=== PATIENT | male | born 1960 | race Caucasian/White ===

== ENCOUNTER 2023-01-16 13:50 | Emergency (ER) | payer OTHER ==
[~2023-01-16] VITALS: Ht 180.3 cm; Wt 83.9 kg
[2023-01-16] MEDS ORDERED: METOPROLOL SUCC25 MG PO (18:39)
--- NOTE | 2023-01-16 19:35 | EKG ---
[facility] [address] [facility] [place] [address] Signed Normal sinus rhythm Possible Left atrial enlargement Incomplete right bundle branch block Left ventricular hypertrophy ( R in aVL , Lane product ) Prolonged QT Abnormal ECG No previous ECGs available Confirmed by Geovanna Yoo MD () on 01/16/2023 7:34:55 PM Electronically Signed By: GEOVANNA YOO MD 01/16/231934 PATIENT NAME: LESLIE CAMACHO Electrocardiogram DATE OF : 58 PHYSICIAN: GEOVANNA YOO MD REPORT #: [id number] REPORT IS CONFIDENTIAL AND NOT TO BE RELEASED WITHOUT AUTHORIZATION
== END 2023-01-16 19:03 | disposition home or self-care (01) ==
LOC: ED 13:50
DX: I16.0 Hypertensive urgency (principal); F15.10 Other stimulant abuse, uncomplicated; E11.40 Type 2 diabetes mellitus with diabetic neuropathy, unspecified; I10 Essential (primary) hypertension; Z88.0 Allergy status to penicillin
CPT/HCPCS: 36415; 70450; 70496; 70498; 71045; 80053; 83690; 84484; 85025; 85610; 85730; 93005; 93010; 96361; 99285-25; J2060; J2405; J7030; Q9967

== ENCOUNTER 2023-09-21 14:09 | Emergency (ER) | payer OTHER ==
[~2023-09-21] VITALS: Ht 180.3 cm; Wt 96.3 kg
[~2023-09-21 14:09] MED LIST: METOPROLOL SUCC25 MG PO
[2023-09-21] MEDS ORDERED: BACTRIM DS TAB1 EACH PO (15:11)
[2023-09-21 15:34] VITALS: BP 196/113
== END 2023-09-21 15:35 | disposition home or self-care (01) ==
LOC: ED 14:09
DX: L02.512 Cutaneous abscess of left hand (principal); T24.332A Burn of third degree of left lower leg, initial encounter; X17.XXXA Contact with hot engines, machinery and tools, initial encounter; I10 Essential (primary) hypertension; Z88.0 Allergy status to penicillin
CPT/HCPCS: 99283; A9270

== ENCOUNTER 2023-12-24 08:03 | Emergency (ER) | payer OTHER ==
[~2023-12-24] VITALS: Ht 180.3 cm; Wt 93.7 kg
[~2023-12-24 08:03] MED LIST changes: +BACTRIM DS TAB1 EACH PO
[2023-12-24] MEDS ORDERED: ACETAMINOPHEN 500 MG TAB PO ONE (08:30)
[2023-12-24 09:02] LABS: INFLUENZA B NAA NEGATIVE (NEGATIVE); RESPIRATORY SYNCYTIAL VIR NAA NEGATIVE (NEGATIVE)
[2023-12-24 09:18] VITALS: BP 156/94
== END 2023-12-24 09:18 | disposition home or self-care (01) ==
LOC: ED 08:03
PROVIDERS: Emergency Medicine
DX: J10.1 Influenza due to other identified influenza virus with other respiratory manifestations (principal); Z88.0 Allergy status to penicillin
CPT/HCPCS: 71045; 87502; A9270; U0002

== ENCOUNTER 2024-10-10 14:53 | Emergency (ER) | payer MEDICARE, OTHER ==
[~2024-10-10] VITALS: Ht 180.3 cm; Wt 90.4 kg
[2024-10-10] MEDS ORDERED: INHALER, ASSIST DEVICES 1 EACH SPACER MISC ONE (16:30)
[2024-10-10] MEDS ORDERED: ACETAMINOPHEN 500 MG TAB PO ONE (16:30)
[2024-10-10] MEDS ORDERED: ALBUTEROL SULFATE 8 GM HOME.PACK INH ONE (16:30)
[2024-10-10] MEDS ORDERED: IBUPROFEN 600 MG TAB PO ONE (16:30)
[2024-10-10 16:50] VITALS: BP 170/112
== END 2024-10-10 16:50 | disposition home or self-care (01) ==
LOC: ED 14:53
DX: J20.9 Acute bronchitis, unspecified (principal); F17.200 Nicotine dependence, unspecified, uncomplicated; Z88.0 Allergy status to penicillin
CPT/HCPCS: 99283; A9270

== ENCOUNTER 2024-12-02 14:08 | Emergency (ER) | payer MEDICARE, OTHER ==
[~2024-12-02] VITALS: Ht 180.3 cm; Wt 69.9 kg
[2024-12-02 14:55] LABS: CORONAVIRUS COVID-19 AG NEGATIVE (NEGATIVE); INFLUENZA A AG NEGATIVE (NEGATIVE); INFLUENZA B AG NEGATIVE (NEGATIVE)
[2024-12-02] MEDS ORDERED: ALBUTEROL/IPRATROPIUM 3 ML NEB INH ONE (15:00)
[2024-12-02 15:32] LABS: BASOPHILS 0.7 % (0-2); EOSINOPHILS 2.3 % (0-6); HEMATOCRIT 40.5 % (35.0-50.0); HEMOGLOBIN 14.1 g/dL (12.0-18.0); LYMPHOCYTES 13.4 % (24-44); MCH 31.2 (27-36); MCHC 34.9 g/dl (30-36); MCV 89.4 fl (81-99); MONOCYTES 9.6 % (0-12); PLATELET COUNT 220 K/uL (140-440); RBC 4.53 M/ul (4.3-5.7); RDW 13.9 (10.5-15.0)
[2024-12-02 15:56] LABS: ALBUMIN 3.5 g/dL (3.4-5.0); ALBUMIN/GLOBULIN RATIO 1.09 (1.1-2.4); ANION GAP 16.3 (7-21); BILIRUBIN, TOTAL 0.7 ng/dL (0.2-1.0); BUN/CREATININE RATIO 11.53 (6.0-28.6); CALCIUM 8.4 mg/dL (8.5-10.1); CREATININE, SERUM 1.04 mg/dL (0.70-1.30); POTASSIUM 4.3 mmol/L (3.5-5.1); PROTEIN, TOTAL 6.7 g/dL (6.4-8.2)
[2024-12-02] MEDS ORDERED: HEParin SOD (PORCINE) 5,000 UNIT/ML VIAL IV ONE ×2 (16:45→18:00)
[2024-12-02] MEDS ORDERED: CEFUROXIME SODIUM IV ONE (16:45)
[2024-12-02] MEDS ORDERED: ASPIRIN 325 MG TAB PO ONE (16:45)
[2024-12-02] MEDS ORDERED: HEPARIN SOD,PORK IN 0.45% NACL 500 ML IV SCH ×2 (16:45→18:00)
[2024-12-02] MEDS ORDERED: AZITHROMYCIN 250 MG TAB PO ONE (16:45)
[2024-12-02] MEDS ORDERED: DEXTROSE 5% IV ONE (16:45)
[2024-12-02] MEDS ORDERED: FUROSEMIDE 20 MG/2 ML VIAL IV ONE (17:00)
[2024-12-02] MEDS ORDERED: AZITHROMYCIN 250 MG TAB ONE (17:12)
[2024-12-02] MEDS ORDERED: ASPIRIN 325 MG TAB ONE (17:13)
[2024-12-02 17:18] LABS: AMPHETAMINES, URINE POSITIVE (NEGATIVE); BARBITURATES, URINE NEGATIVE (NEGATIVE); BENZODIAZEPINE, URINE NEGATIVE (NEGATIVE); BUPRENORPHINE, URINE NEGATIVE (NEGATIVE); CANNABINOID, URINE NEGATIVE (NEGATIVE); COCAINE, URINE NEGATIVE (NEGATIVE); ECSTASY, URINE POSITIVE (NEGATIVE); FENTANYL, URINE NEGATIVE (NEGATIVE); METHADONE, URINE NEGATIVE (NEGATIVE); OPIATES, URINE NEGATIVE (NEGATIVE); OXYCODONE, URINE NEGATIVE (NEGATIVE); PHENCYCLIDINE, URINE NEGATIVE (NEGATIVE)
[2024-12-02 17:23] LABS: PARTIAL THROMBOPLASTIN TIME 32.6 Sec (22.9-41.3)
[2024-12-02 17:24] LABS: INR 1.13 (0.80-1.30); PROTIME 14.4 Sec (11.2-14.2)
[2024-12-02 17:31] LABS: LACTIC ACID, BLOOD 1.4 mmol/L (0.4-2.0)
[2024-12-02 17:33] LABS: MAGNESIUM 1.6 mg/dL (1.8-2.4)
--- NOTE | 2024-12-02 18:22 | EKG ---
[facility] [address] [facility] [place] [address] Signed Sinus tachycardia Possible Left atrial enlargement Left axis deviation Minimal voltage criteria for LVH, may be normal variant ( Sokolow-Cardona ) Nonspecific ST and T wave abnormality Abnormal ECG Confirmed by Laurel Aguirre MD ([id number]) on 12/02/2024 6:22:33 PM Electronically Signed By: LAUREL AGUIRRE MD 12/02/241821 PATIENT NAME: CAMACHOLESLIE Electrocardiogram DATE OF : 58 PHYSICIAN: LAUREL AGUIRRE MD REPORT #: [id number] REPORT IS CONFIDENTIAL AND NOT TO BE RELEASED WITHOUT AUTHORIZATION
--- NOTE | 2024-12-02 18:22 | EKG ---
[facility] [address] [place] [address] Signed Sinus tachycardia Incomplete right bundle branch block Minimal voltage criteria for LVH, may be normal variant ( R in aVL ) Anteroseptal infarct , age undetermined ST \T\ T wave abnormality, consider lateral ischemia Abnormal ECG When compared with ECG of 16-JAN-2023 15:13, Anteroseptal infarct is now present T wave inversion now evident in Anterolateral leads Confirmed by Laurel Aguirre MD ([id number]) on 12/02/2024 6:22:02 PM Electronically Signed By: LARUEL AGUIRRE MD 12/02/241821 PATIENT NAME: LESLIE CAMACHO Electrocardiogram DATE OF : 58 PHYSICIAN: LAUREL AGUIRRE MD REPORT #: [id number] REPORT IS CONFIDENTIAL AND NOT TO BE RELEASED WITHOUT AUTHORIZATION
[2024-12-02 23:18] VITALS: BP 158/85
== END 2024-12-02 23:18 | disposition short-term general hospital (02) ==
LOC: ED 14:08
PROVIDERS: Emergency Medicine
DX: I21.4 Non-ST elevation (NSTEMI) myocardial infarction (principal); J18.9 Pneumonia, unspecified organism; I50.9 Heart failure, unspecified; F17.200 Nicotine dependence, unspecified, uncomplicated; Z88.0 Allergy status to penicillin; Z59.00 Homelessness unspecified
CPT/HCPCS: 36415; 71046; 80053; 80307; 83605; 83735; 83880; 84484; 85025; 85610; 85730; 93005; 93010; 94640; 96374; 96375; 96376; 99285-25; J0697; J1644; J1940